=== PATIENT | male | born 1985 | race Caucasian/White ===

== ENCOUNTER 2023-11-02 18:02 | Emergency (ER) | payer OTHER ==
[~2023-11-02] VITALS: Ht 175.3 cm; Wt 86.2 kg
[~2023-11-02 18:02] MED LIST: CEPH250C16 PO; CLIN300C2 PO; LISI2.5T12 PO; METF-346 PO
[2023-11-02 18:07] VITALS: BP 152/100; PULSE 125; RESP 18; TEMP 100.3; O2SAT 99
[2023-11-02] MEDS: ACETAMINOPHEN EXTRA STRENGTH 500 MG TAB PO ONE (18:37)
[2023-11-02] MEDS: IBUPROFEN 400 MG TAB PO ONE (18:37)
[2023-11-02 19:31] LABS: FLU A ANTIGEN negative (NEGATIVE)
[2023-11-02 19:33] LABS: FLU B ANTIGEN POSITIVE (NEGATIVE)
[2023-11-02] MEDS ORDERED: IBUPROFEN 400 MG TAB PO STA (19:52)
[2023-11-02] MEDS ORDERED: DEXAMETHASONE 10 MG/ML VIAL IVP ONE (19:55)
[2023-11-02] MEDS ORDERED: NACL 0.9% 2,000 ML IV ONE (19:55)
[2023-11-02] MEDS ORDERED: SUD30 PO (19:59)
[2023-11-02] MEDS ORDERED: IBUP-2218 PO (19:59)
[2023-11-02] MEDS ORDERED: PROM118S5 PO (19:59)
[2023-11-02] MEDS ORDERED: TAM75 PO (19:59)
[2023-11-02] MEDS ORDERED: ONDA-188 PO (19:59)
[2023-11-02] MEDS ORDERED: ACET-10509 PO (19:59)
[2023-11-02] MEDS: NACL 0.9% 2,000 ML IV STA (20:09)
[2023-11-02] MEDS: IBUPROFEN 400 MG TAB PO STA (20:11)
[2023-11-02] MEDS: DEXAMETHASONE 10 MG/ML VIAL IVP STA (20:27)
[2023-11-02 21:34] VITALS: BP 142/98; RESP 18; O2SAT 99
[2023-11-02 21:42] VITALS: PULSE 99; TEMP 98.4
== END 2023-11-02 21:42 | disposition home or self-care (01) ==
LOC: MED 18:02
DX: J10.1 Influenza due to other identified influenza virus with other respiratory manifestations (principal); E11.9 Type 2 diabetes mellitus without complications; Z20.822 Contact with and (suspected) exposure to COVID-19; Z79.84 Long term (current) use of oral hypoglycemic drugs; Z79.899 Other long term (current) drug therapy
CPT/HCPCS: 82947; 96361; 96374; 99284; J1100; J7030